=== PATIENT | female | born 1970 | race Caucasian/White ===

== ENCOUNTER 2021-08-18 04:48 | Inpatient (IN) | payer BC ==
[~2021-08-18] VITALS: Ht 167.6 cm; Wt 106.2 kg
[2021-08-18 05:27] LABS: HEMOGLOBIN 17.5 gm/dl (12.3-15.3); RED BLOOD COUNT 5.61 M/UL (4.00-5.10); WHITE BLOOD COUNT 15.2 K/UL (4.5-11.0)
[2021-08-18 05:55] LABS: BUN/CREATININE RATIO 79 (0-10)
[2021-08-18] MEDS ORDERED: CELEXA20 MG PO (12:42)
[2021-08-18] MEDS ORDERED: JARDIANCE10 MG PO (12:42)
[2021-08-18] MEDS ORDERED: FENOFIBRATE160 MG PO (12:43)
[2021-08-18] MEDS ORDERED: VITAMIN D21250 MCG PO (12:43)
[2021-08-18] MEDS ORDERED: HUMULIN R U-500 SQ ×2 (12:45→12:46)
[2021-08-18] MEDS ORDERED: COZAAR50 MG PO (12:46)
[2021-08-18] MEDS ORDERED: METFORMIN HCL500 M2 PO (12:47)
[2021-08-18] MEDS ORDERED: LEVOTHYROXINE200 MC1 PO (12:48)
[2021-08-18] MEDS ORDERED: ZOCOR 40 MG TAB40 MG PO (12:48)
[2021-08-18] MEDS ORDERED: EPIPEN 2-P0.3 MG/0.3 INJ (12:49)
[2021-08-18 13:07] LABS: BUN/CREATININE RATIO 90 (0-10)
[2021-08-18 16:48] LABS: BUN/CREATININE RATIO 95 (0-10)
[2021-08-18 21:33] LABS: BUN/CREATININE RATIO 76 (0-10)
[2021-08-19 01:40] LABS: BUN/CREATININE RATIO 52 (0-10)
[2021-08-19 05:13] LABS: RED BLOOD COUNT 4.66 M/UL (4.00-5.10); WHITE BLOOD COUNT 10.3 K/UL (4.5-11.0)
[2021-08-19 05:14] LABS: HEMOGLOBIN 14.1 gm/dl (12.3-15.3)
[2021-08-19 05:50] LABS: BUN/CREATININE RATIO 54 (0-10)
[2021-08-19 10:37] LABS: BUN/CREATININE RATIO 46 (0-10)
[2021-08-19 14:24] LABS: BUN/CREATININE RATIO 46 (0-10)
[2021-08-19 18:42] LABS: BUN/CREATININE RATIO 40 (0-10)
[2021-08-19 23:04] LABS: BUN/CREATININE RATIO 32 (0-10)
[2021-08-20 03:11] LABS: BUN/CREATININE RATIO 32 (0-10)
[2021-08-20 05:12] LABS: HEMOGLOBIN 12.9 gm/dl (12.3-15.3); RED BLOOD COUNT 4.22 M/UL (4.00-5.10); WHITE BLOOD COUNT 5.5 K/UL (4.5-11.0)
[2021-08-20 05:24] LABS: BUN/CREATININE RATIO 31 (0-10)
[2021-08-20 06:36] LABS: BUN/CREATININE RATIO 24 (0-10)
[2021-08-20 15:21] LABS: BUN/CREATININE RATIO 22 (0-10)
[2021-08-20 22:22] LABS: BUN/CREATININE RATIO 28 (0-10)
[2021-08-21 04:30] LABS: BUN/CREATININE RATIO 24 (0-10)
[2021-08-21 06:47] LABS: HEMOGLOBIN 12.5 gm/dl (12.3-15.3); RED BLOOD COUNT 4.16 M/UL (4.00-5.10)
[2021-08-21 07:24] LABS: BUN/CREATININE RATIO 22 (0-10)
[2021-08-21 07:26] LABS: WHITE BLOOD COUNT 4.1 K/UL (4.5-11.0)
[2021-08-21 08:24] LABS: ANTISTREPTOLYSIN O AB 58.3 IU/mL (0.0-200.0); COMPLEMENT C3, SERUM 124 mg/dL (82-167); COMPLEMENT C4, SERUM 28 mg/dL (12-38); HBSAG SCREEN Negative (Negative); HCV AB <0.1 (0.0-0.9); HEP B CORE AB, TOT Negative (Negative)
[2021-08-21 10:42] LABS: BUN/CREATININE RATIO 23 (0-10)
[2021-08-21 14:15] LABS: ANTI-DSDNA ANTIBODIES <1 IU/mL (0-9)
[2021-08-21 14:50] LABS: BUN/CREATININE RATIO 27 (0-10)
[2021-08-21 16:15] LABS: ATYPICAL PANCA <1:20 titer (Neg:<1:20); CYTOPLASMIC (C-ANCA) <1:20 titer (Neg:<1:20); PERINUCLEAR (P-ANCA) <1:20 titer (Neg:<1:20)
[2021-08-21 17:09] LABS: A/G RATIO 1.2 (0.7-1.7); ALBUMIN 2.8 g/dL (2.9-4.4); ALPHA-1-GLOBULIN 0.3 g/dL (0.0-0.4); ALPHA-2-GLOBULIN 0.7 g/dL (0.4-1.0); BETA GLOBULIN 0.9 g/dL (0.7-1.3); GAMMA GLOBULIN 0.6 g/dL (0.4-1.8); GLOBULIN, TOTAL 2.5 g/dL (2.2-3.9); IMMUNOGLOBULIN A, QN, SERUM 203 mg/dL (87-352); IMMUNOGLOBULIN G, QN, SERUM 626 mg/dL (586-1602); IMMUNOGLOBULIN M, QN, SERUM 93 mg/dL (26-217); M-SPIKE Not Observed g/dL (Not Observed); PROTEIN, TOTAL, SERUM 5.3 g/dL (6.0-8.5)
[2021-08-22 05:33] LABS: BUN/CREATININE RATIO 25 (0-10)
[2021-08-22 05:41] LABS: HEMOGLOBIN 12.4 gm/dl (12.3-15.3); RED BLOOD COUNT 4.13 M/UL (4.00-5.10); WHITE BLOOD COUNT 3.8 K/UL (4.5-11.0)
[2021-08-22] MEDS ORDERED: LEVOFLOXACIN500 MG PO (11:34)
[2021-08-22] MEDS ORDERED: VITAMIN B-1100 M1 PO (11:34)
[2021-08-22] MEDS ORDERED: LANTUS INS100 UTS/M1 SQ (11:34)
[2021-08-22] MEDS ORDERED: TAB-A-VITE TA400 MC1 PO (11:34)
[2021-08-23 05:15] LABS: HEMOGLOBIN 11.9 gm/dl (12.3-15.3); RED BLOOD COUNT 3.96 M/UL (4.00-5.10)
[2021-08-23 05:34] LABS: BUN/CREATININE RATIO 22 (0-10)
[2021-08-23] MEDS ORDERED: AMOX TR-K CLV1 EAC4 PO (10:05)
[2021-08-23] MEDS ORDERED: KLOR-CON 1010 MEQ PO (10:05)
[2021-08-23] MEDS ORDERED: VITAMIN B-1100 M1 PO (10:06)
[2021-08-23] MEDS ORDERED: TAB-A-VITE TA400 MC1 PO (10:06)
[2021-08-23] MEDS ORDERED: LANTUS INS100 UTS/M1 SQ (10:06)
== END 2021-08-23 12:22 | disposition home or self-care (01) | DRG 871 ==
LOC: ER1 04:48 → CDU 10:53 → CCU 16:10
PROVIDERS: Emergency Medicine; Internal Medicine Nephrology; Physician Assistant; ADMIT Internal Medicine
DX: A41.9 Sepsis, unspecified organism (principal); E11.10 Type 2 diabetes mellitus with ketoacidosis without coma; Z20.822 Contact with and (suspected) exposure to COVID-19; G93.41 Metabolic encephalopathy; J18.9 Pneumonia, unspecified organism; E87.1 Hypo-osmolality and hyponatremia; N17.9 Acute kidney failure, unspecified; R65.20 Severe sepsis without septic shock; K52.9 Noninfective gastroenteritis and colitis, unspecified; D75.1 Secondary polycythemia; E78.5 Hyperlipidemia, unspecified; K76.0 Fatty (change of) liver, not elsewhere classified; F32.A Depression, unspecified; E66.9 Obesity, unspecified; F41.9 Anxiety disorder, unspecified; D69.6 Thrombocytopenia, unspecified; E83.39 Other disorders of phosphorus metabolism; E86.0 Dehydration; E87.6 Hypokalemia; Z98.84 Bariatric surgery status; Z85.51 Personal history of malignant neoplasm of bladder; Z90.49 Acquired absence of other specified parts of digestive tract; Z91.010 Allergy to peanuts; Z83.3 Family history of diabetes mellitus; Z82.0 Family history of epilepsy and other diseases of the nervous system
CPT/HCPCS: 36415; 36600; 70450; 71045; 71260; 80048; 80053; 80202; 80307; 81001; 82009; 82140; 82436; 82550; 82553; 82570; 82607; 82746; 82784; 82803; 82962; 83036; 83520; 83540; 83550; 83605; 83735; 83880; 83883; 83935; 84100; 84132; 84133; 84155; 84156; 84165; 84300; 84439; 84443; 84484; 85025; 85027; 85652; 86038; 86060; 86160; 86162; 86225; 86256; 86334; 86704; 86706; 86708; 86803; 87040; 87086; 87340; 93005; 96372; 96374; 96375; 96376; 99285; C9113; J0692; J1650; J2060; J2185; J2270; J2405; J2550; J3370; J3411; J3475; J3480; J7030; J7050; J7070; Q0177; Q9967; U0002